=== PATIENT | female | born 1975 | race African-American/Black ===

== ENCOUNTER 2018-02-22 08:04 | Emergency (ER) | payer OTHER ==
[~2018-02-22] VITALS: Ht 162.6 cm; Wt 64.4 kg
[~2018-02-22 08:04] MED LIST: DIPHENHIST50 MG PO
[2018-02-22 08:33] LABS: ABSOLUTE LYMPHOCYTES 1.1 thou/uL (0.8-5.3); ABSOLUTE MONOCYTES 0.2 thou/uL (0.0-1.2); ABSOLUTE NEUTROPHILS 4.2 thou/uL (1.6-8.1); BASOPHILS 0.4 %; EOSINOPHILS 0.6 %; HEMATOCRIT 34.2 % (37.0-47.0); HEMOGLOBIN 11.2 gm/dL (12.0-15.0); LYMPHOCYTES 19.6 %; MCH 25.5 pg (26.0-34.0); MCHC 32.6 g/dL (28.0-37.0); MCV 78.1 fL (80.0-100.0); MONOCYTES 2.9 %; MPV 7.1 fl. (7.2-11.1); NUCLEATED RBCS 0 /100WBC; PLATELET COUNT* 420 thou/uL (150-400); POLYS 76.5 %; RBC 4.38 mil/uL (4.20-5.00); RDW-CV 15.5 % (10.5-14.5); WBC 5.5 thou/uL (4.0-11.0)
[2018-02-22 08:51] LABS: ANION GAP 8 mmol/L (7-16); BUN 6 mg/dL (7-18); CALCIUM 8.9 mg/dL (8.5-10.1); CHLORIDE 101 mmol/L (98-107); CO2 27 mmol/L (21-32); CREATININE 0.7 mg/dL (0.6-1.3); GLUCOSE 91 mg/dL (70-99); POTASSIUM 3.8 mmol/L (3.5-5.1); SODIUM 136 mmol/L (136-145)
[2018-02-22 09:01] LABS: ALBUMIN 3.4 g/dL (3.4-5.0); ALKALINE PHOSPHATASE 57 U/L (46-116); LIPASE 126 U/L (73-393); SGOT 34 U/L (15-37); SGPT 62 U/L (30-65); TOTAL BILIRUBIN 0.6 mg/dL (<0.1-1.0); TOTAL PROTEIN 8.1 g/dL (6.4-8.2); TROPONIN-I LEVEL <0.06 ng/mL (<0.06)
[2018-02-22 09:46] LABS: URINE BILIRUBIN NEGATIVE (Negative); URINE BLOOD NEGATIVE (Negative); URINE CLARITY CLEAR; URINE COLOR YELLOW; URINE GLUCOSE-RANDOM NEGATIVE (Negative); URINE KETONES NEGATIVE (Negative); URINE LEUKOCYTES-REFLEX NEGATIVE (Negative); URINE NITRITE-REFLEX NEGATIVE (Negative); URINE PROTEIN NEGATIVE (Negative); URINE SPECIFIC GRAVITY <= 1.005 (1.005-1.030); URINE UROBILINOGEN 0.2 E.U./dl (0.2-1.0)
[2018-02-22] MEDS ORDERED: ZOFRAN ODT4 M1 PO (10:01)
[2018-02-22] MEDS ORDERED: NORCO 5-325 TA1 EACH PO (10:01)
[2018-02-22 10:06] VITALS: BP 121/73
--- NOTE | 2018-02-22 15:09 | EKG ---
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 : 1975 Requested By: Ranjeet Morrison Order Number: [id number] MD: Bandar Hinojosa Measurements Intervals [place] Rate: 85 P: 91 OR: 145 QRS: 81 QRSD: 97 T: 66 QT: 359 QTc: 427 Interpretive Statements Sinus rhythm Probable left atrial enlargement RSR' in V1 or V2, right VCD or RVH No previous ECG available for comparison Electronically Signed On 02-22-2018 15:08:47 CDT by Bandar Hinojosa [email or web address] <ELECTRONICALLY SIGNED> By: Badnar Hinojosa MD, [facility] 02/22/18 1508 0 0 Bandar Hinojosa MD, [facility] /EPI
== END 2018-02-22 10:06 | disposition home or self-care (01) ==
LOC: M.ERS 08:04
PROVIDERS: Emergency Medicine Emergency Medical Services
DX: R10.30 Lower abdominal pain, unspecified (principal); R50.9 Fever, unspecified; R11.2 Nausea with vomiting, unspecified; R05 Cough; Z90.721 Acquired absence of ovaries, unilateral; Z98.890 Other specified postprocedural states